=== PATIENT | female | born 1960 | race Caucasian/White ===

== ENCOUNTER → 2016-06-29 | Outpatient (CLI) | payer BC, OTHER ==
--- NOTE | 2016-06-30 09:51 | MM ---
Reason for exam: screening (asymptomatic). Last mammogram was performed 1 year and 9 months ago. History: Patient is postmenopausal and had first child at age 33. Benign right mammotome panel of the right breast, July 27, 2010. Took hormonal contraceptives for 5 years. Physical Findings: A clinical breast exam by your physician is recommended on an annual basis and results should be correlated with mammographic findings. MG Screening Mammo w CAD Bilateral CC and MLO view(s) were taken. Prior study comparison: September 30, 2014, bilateral MG screening mammo w CAD. September 19, 2013, bilateral digital screening mammo w/CAD. The breast tissue is heterogeneously dense. This may lower the sensitivity of mammography. Finding: There are typically benign calcifications in both breasts. Previous mammotome biopsy in the right breast. No significant changes in finding since September 30, 2014 and September 19, 2013. ASSESSMENT: Benign, BI-RAD 2 RECOMMENDATION: Routine screening mammogram of both breasts in 1 year.
== END | disposition home or self-care (01) ==
LOC: RADMAMWWP 07:01
PROVIDERS: ATTEND Family Medicine
DX: Z12.31 Encounter for screening mammogram for malignant neoplasm of breast (principal)

== ENCOUNTER → 2017-08-23 | Outpatient (CLI) | payer BC, OTHER ==
--- NOTE | 2017-08-24 11:31 | MM ---
Reason for exam: screening (asymptomatic). Last mammogram was performed 1 year and 2 months ago. History: Patient is postmenopausal and had first child at age 33. Benign right mammotome panel of the right breast, July 27, 2010. Took hormonal contraceptives for 5 years. Physical Findings: A clinical breast exam by your physician is recommended on an annual basis and results should be correlated with mammographic findings. MG Screening Mammo w CAD Bilateral CC and MLO view(s) were taken. Prior study comparison: June 29, 2016, bilateral MG screening mammo w CAD. September 30, 2014, bilateral MG screening mammo w CAD. The breast tissue is heterogeneously dense. This may lower the sensitivity of mammography. High density nodule lower outer left breast 6.8cm from nipple. ASSESSMENT: Incomplete: need additional imaging evaluation, BI-RAD 0 RECOMMENDATION: Special view mammogram and ultrasound of the left breast. [facility] will attempt to contact patient to return for supplemental views and ultrasound.
== END | disposition home or self-care (01) ==
LOC: RADMAMWWP 07:06
PROVIDERS: ATTEND Family Medicine
DX: Z12.31 Encounter for screening mammogram for malignant neoplasm of breast (principal); R92.2 Inconclusive mammogram
CPT/HCPCS: 77067

== ENCOUNTER → 2017-08-30 | Outpatient (CLI) | payer BC, OTHER ==
--- NOTE | 2017-08-31 07:11 | MM ---
Reason for exam: additional evaluation requested from abnormal screening. Last mammogram was performed less than 1 month ago. History: Patient is postmenopausal and had first child at age 33. Benign right mammotome panel of the right breast, July 27, 2010. Took hormonal contraceptives for 5 years. Physical Findings: Nurse Summary: 1cm nodule in the left breast at 1 o'clock (nurse tierney). MG Work Up Mamm w CAD LT Spot compression CC, spot compression MLO, and ML view(s) were taken of the left breast. Prior study comparison: August 23, 2017, bilateral MG screening mammo w CAD. June 29, 2016, bilateral MG screening mammo w CAD. No distinct lesion persists on additional views. These results were verbally communicated with the patient and result sheet given to the patient on 08/30/17. ASSESSMENT: Incomplete: need additional imaging evaluation, BI-RAD 0 RECOMMENDATION: Ultrasound of the left breast. (palpable abnormality)
--- NOTE | 2017-08-31 07:12 | USB ---
Reason for exam: additional evaluation requested from abnormal screening. History: Patient is postmenopausal and had first child at age 33. Benign right mammotome panel of the right breast, July 27, 2010. Took hormonal contraceptives for 5 years. US Breast Workup Limited LT Left breast ultrasound demonstrates no cystic or solid lesion seen, duct ectasia at the posterior nipple. These results were verbally communicated with the patient and result sheet given to the patient on 08/30/17. ASSESSMENT: Negative, BI-RAD 1 RECOMMENDATION: Return to routine screening mammogram schedule for both breasts.
== END | disposition home or self-care (01) ==
LOC: RADMAMWWP 14:45
PROVIDERS: ATTEND Family Medicine
DX: R92.8 Other abnormal and inconclusive findings on diagnostic imaging of breast (principal)
CPT/HCPCS: 77065

== ENCOUNTER → 2018-03-01 | Outpatient (CLI) | payer BC, OTHER ==
--- NOTE | 2018-03-03 12:42 | CT ---
EXAMINATION TYPE: CT elbow RT wo con DATE OF EXAM: 03/01/2018 COMPARISON: None HISTORY: rt radial head fx CT DLP: 265.4 mGycm Automated exposure control for dose reduction was used. TECHNIQUE: Axial images right elbow. Three-D reconstructed images performed separately on the [employer] computer by the technologist are reviewed. FINDINGS: Distal humerus within the [id number] is normal. There is a fracture through the radial head with the articular extension. This appears to be within t he mid radial head extending to the anterior radial neck. Radius and ulna otherwise appear intact. Mi nimal diastases is present. Some wedge deformity of the anterior portion of the radial head may be pr esent. Reconstructed images in the coronal and sagittal plane are reviewed. Three-D reconstructed images per formed separately on the [employer] computer by the technologist are reviewed. IMPRESSION: RADIAL HEAD FRACTURE WITH RADIAL HEAD DEFORMITY. VERY MINIMAL DIASTASES AT THE ARTICULAR SURFACE IS I DENTIFIED ON THE SAGITTAL PLANE IMAGES ESTIMATED AT 0.3 CM.
== END | disposition home or self-care (01) ==
LOC: RADCTMAIN 13:12
PROVIDERS: ATTEND Orthopaedic Surgery
DX: S52.121A Displaced fracture of head of right radius, initial encounter for closed fracture (principal)

== ENCOUNTER → 2018-09-05 | Outpatient (CLI) | payer BC, OTHER ==
--- NOTE | 2018-09-06 11:27 | MM ---
Reason for exam: screening (asymptomatic). Last mammogram was performed 1 year ago. History: Patient is postmenopausal and had first child at age 33. Benign right mammotome panel of the right breast, July 27, 2010. Took hormonal contraceptives for 5 years. Physical Findings: A clinical breast exam by your physician is recommended on an annual basis and results should be correlated with mammographic findings. MG 3D Screening Mammo W/Cad Bilateral CC and MLO view(s) were taken. Prior study comparison: August 30, 2017, left breast MG work up mamm w CAD LT. August 23, 2017, bilateral MG screening mammo w CAD. The breast tissue is heterogeneously dense. This may lower the sensitivity of mammography. Finding: There are indeterminate calcifications in the subareolar position of the right breast 3-4cm from the nipple. New finding since August 30, 2017 and August 23, 2017 ASSESSMENT: Incomplete: need additional imaging evaluation, BI-RAD 0 RECOMMENDATION: Special view mammogram of the right breast. [facility] will attempt to contact patient to return for supplemental views.
== END | disposition home or self-care (01) ==
LOC: RADMAMWWP 09:24
PROVIDERS: ATTEND Family Medicine
DX: Z12.31 Encounter for screening mammogram for malignant neoplasm of breast (principal)
CPT/HCPCS: 77063; 77067

== ENCOUNTER → 2018-09-12 | Outpatient (CLI) | payer BC, OTHER ==
--- NOTE | 2018-09-13 09:24 | MM ---
Reason for exam: additional evaluation requested from abnormal screening. Last mammogram was performed less than 1 month ago. History: Patient is postmenopausal and had first child at age 33. Benign right mammotome panel of the right breast, July 27, 2010. Took hormonal contraceptives for 5 years. Physical Findings: Nurse did not find any significant physical abnormalities on exam. MG 3D Work Up W/Cad RT Spot compression CC, spot compression LM, and LM view(s) were taken of the right breast. Prior study comparison: September 05, 2018, bilateral MG 3d screening mammo w/cad. August 30, 2017, left breast MG work up mamm w CAD LT. The breast tissue is heterogeneously dense. This may lower the sensitivity of mammography. Finding: There are indeterminate calcifications in the lower inner quadrant of the right breast. These results were verbally communicated with the patient and result sheet given to the patient on 09/12/18. ASSESSMENT: Suspicious, BI-RAD 4 RECOMMENDATION: Stereotactic core biopsy of the right breast. Called Dr. Mandel with mammographic findings and has scheduled an appointment for the patient for 09/13/18 at 10:[address] Kline. Biopsy scheduled for 09/24/18 at 2:20. PRELIMINARY REPORT CALLED AND FAXED TO DR. KLINE ON 09/13/18.
== END | disposition home or self-care (01) ==
LOC: RADMAMWWP 14:53
PROVIDERS: ATTEND Family Medicine
DX: R92.8 Other abnormal and inconclusive findings on diagnostic imaging of breast (principal)
CPT/HCPCS: 77061; 77065

== ENCOUNTER → 2018-09-13 | Outpatient (CLI) | payer BC, OTHER ==
[2018-09-13 10:28] VITALS: BP 142/72; PULSE 54; RESP 20; TEMP 98.2; BMI 33.6
--- NOTE | 2018-09-13 11:11 | P.GSHP ---
History of Present Illness H&P Date: 09/13/18 Chief Complaint: abnormal mammogram Sima is a 58 -year-old white female being seen in consultation for Dr. Simon who underwent a routine screening mammogram on 4419. She was noted to have some indeterminate calcifications in the right breast 3-4 cm from the nipple. The patient was recommended to undergo [place] [address]. On this mammogram there was some indeterminate calcifications in the lower inner quadrant of the right breast and stereotactic core biopsy was recommended. The patient does not feel anything of concern in her breast. The patient did have a stereo biopsy in 2010 which was benign of her right breast. She is uncertain as to which breast this was then. She has no complaints of any pain in her breast no nipple discharge or skin changes. Family history: father: throat cancer, non hodgkins lymphoma Hormonal history: Menarche: 11 : 2, children 2, breast fed: yes, first born at 33 menopause: 49 BCP: 5 years hormones: none Past surgical history: 1. Vaginal hysterectomy 2. Right knee arthroscopic surgery 3. Right fingers and elbow, trauma Past Medical History: hypothyroid Social history smoke: none alcohol: none drugs: none - Constitutional Constitutional: Denies chills, Denies fever - EENT Eyes: denies blurred vision, denies pain Ears: deny: decreased hearing, tinnitus Ears, nose, mouth and throat: Denies headache, Denies sore throat - Breasts Breasts: bilateral: as per HPI - Cardiovascular Cardiovascular: Denies chest pain, Denies shortness of breath - Respiratory Respiratory: Denies cough, Denies 7 - Gastrointestinal Comment: colonoscopies in the past [place] Gastrointestinal: Reports constipation, Denies abdominal pain, Denies diarrhea, Denies nausea, Denies vomiting - Genitourinary (Female) Genitourinary: Denies dysuria, Denies hematuria - Menstruation Menstruation: Reports postmenopausal - Musculoskeletal Comment: arthritis Musculoskeletal: Denies myalgias - Integumentary Integumentary: Denies pruritus, Denies rash - Neurological Neurological: Denies numbness, Denies weakness - Psychiatric Psychiatric: Denies anxiety, Denies depression - Endocrine Comment: hypothyroid - Hematologic/Lymphatic Comment: none - Allergic/Immunologic Comment: none Past Medical History Past Medical History: Thyroid Disorder History of Any Multi-Drug Resistant Organisms: None Reported Past Surgical History: Hysterectomy, Orthopedic Surgery Additional Past Surgical History / Comment(s): RT ELBOW AND FINGERS 03/13/2018; HYSTERECTOMY APPROX 1998; RT KNEE ARTHROSCOPY; RT BREAST BIOPSY Smoking Status: Never smoker - Past Family History Father Family Medical History: Hyperlipidemia Additional Family Medical History / Comment(s): NON-HODGKIN'S LYMPHOMA; THROAT CANCER; PACEMAKER Mother Family Medical History: Diabetes Mellitus, Hyperlipidemia, Hypertension Medications and Allergies Home Medications Medication Instructions Recorded Confirmed Type Ascorbic Acid [Vitamin C] 1,000 mg PO QAM 09/13/18 09/13/18 History Levothyroxine Sodium [Synthroid] 88 mcg PO QAM 09/13/18 09/13/18 History Multivitamins, Thera [Multivitamin 1 tab PO QAM 09/13/18 09/13/18 History (formulary)] Allergies Allergy/AdvReac Type Severity Reaction Status Date / Time amoxicillin Allergy Rash/Hives Unverified 09/13/18 10:17 Surgical - Exam Vital Signs Temp Pulse Resp BP Pulse Ox 98.2 F 54 L 20 142/72 99 09/13/18 10:19 09/13/18 10:19 09/13/18 10:19 09/13/18 10:19 09/13/18 10:19 BMI 33.6 - General well developed, well nourished, no distress - Eyes normal ocular movement - ENT no hearing loss, no congestion - Neck no masses, trachea midline - Respiratory normal respiratory effort, clear to auscultation - Cardiovascular Rhythm: regular Heart Sounds: normal: S1, S2 - Abdomen Abdomen: soft, non tender, no guarding, no rigid, no rebound - Integumentary normal turgor - Neurologic no disoriented, no combative - Musculoskeletal normal gait, normal posture - Psychiatric oriented to time, oriented to person, oriented to place, speech is normal, memory intact breast exam: right breast: Multi-positional exam no dominant masses or nodules of concern, fibrocystic changes Right axilla: No adenopathy of concern left breast: Multi-positional exam no dominant masses or nodules of concern, fibrocystic changes Left axilla: No adenopathy of concern Results Mammogram results reviewed Assessment and Plan Assessment: Impression: 1. Radiographic abnormality right breast 2. fibrocystic breast changes 3. Family history of cancer 4. hypothyroidsim Risk and benefits of stereotactic core biopsy were discussed with the patient and she wishes to proceed. Plan: 1. Stereotactic core biopsy right breast 2. Medical management of medical conditions Cc: Dr. Mandel
== END ==
LOC: WWCWWP 10:03
PROVIDERS: ATTEND Surgery
DX: Z53.9 Procedure and treatment not carried out, unspecified reason (principal)

== ENCOUNTER → 2018-09-24 | Day surgery (SDC) | payer BC, OTHER ==
[2018-09-24 13:47] VITALS: RESP 16; BMI 73.4
[2018-09-24 14:59] VITALS: BP 157/87; PULSE 44; TEMP 97.8
--- NOTE | 2018-09-24 15:14 | MM ---
Stereotactic core biopsy right breast. HISTORY: Microcalcifications. The calcifications in question within the right breast were targeted by the undersigned. The examination was performed by the surgeon. Specimen radiograph demonstrates numerous calcifications within the specimen submitted. Post procedural mammogram demonstrates appropriate deployment of radiopaque clip marker. The patient tolerated the procedure well and left the department in stable condition. Pathology results are pending. IMPRESSION: Successful stereotactic core biopsy right breast with pathology results pending. Pathology Results: Benign RIGHT BREAST, STEREOTACTIC CORE BIOPSY: Fibrocystic changes including cysts with intraluminal calcium oxalate crystals, fibrosis and apocrine metaplasia. Recommendation Follow up mammogram of the right breast in 6 months. MAGO
--- NOTE | 2018-09-24 15:37 | P.OP ---
Date of Procedure: 09/24/18 Preoperative Diagnosis: Mammographic abnormality right breast Postoperative Diagnosis: Mammographic abnormality right breast Procedure(s) Performed: Stereotactic core biopsy right breast Anesthesia: local Surgeon: Jaja Kline Estimated Blood Loss (ml): 1 Pathology: other (Breast tissue) Condition: stable Disposition: same day Indications for Procedure: Microcalcifications of concern lower inner quadrant right breast Description of Procedure: The patient is a 58-year-old white female who was noted on a recent radiographic have an area of calcification of concern in the lower quadrant of the right breast. Recommendation was for stereotactic core biopsy. This can benefits were discussed with the patient and she wished to proceed. The patient was taken to the stereotactic core biopsy room. She was positioned on the low fat stereotactic core table such that a medial to lateral approach could be utilized. A card services specialist film was obtained. The area of concern was identified. A stereo pair was then obtained. The lesion was able to be clearly targeted. The breast was prepped using Betadine. 1% lidocaine was used to anesthetize the area of concern. The needle was driven to the correct coordinates and prefire and post-fire stereo radiographs were obtained. Following this 12 core biopsies were obtained using a 9-gauge vacuum-assisted rotating core biopsy needle. The specimen revealed microcalcifications of concern had been removed. A secure marked top hat Clip was placed. Radiograph confirmed this was in the correct location. The specimen was sent for pathology. The patient will follow-up with Dr. Auguste postprocedure.
== END | disposition home or self-care (01) ==
LOC: RADMAMWWP 13:25
PROVIDERS: ATTEND Surgery
DX: N60.11 Diffuse cystic mastopathy of right breast (principal); N60.81 Other benign mammary dysplasias of right breast
CPT/HCPCS: 88305; 19081; A4648; J2001

== ENCOUNTER → 2018-10-09 | Outpatient (CLI) | payer BC, OTHER ==
[2018-10-09 12:01] VITALS: BP 130/80; PULSE 64; RESP 16; TEMP 98.1; BMI 32.9
--- NOTE | 2018-10-10 12:50 | P.PN ---
Subjective Progress Note Date: 10/09/18 Principal diagnosis: Status post stereotactic core biopsy of the right breast Juancho is a 58-year-old white female who was noted to have a radiographic abnormality on her mammogram and 4419. She had some indeterminate calcifications in the right breast. She underwent a stereotactic core biopsy on [id number]. The pathology results revealed fibrocystic changes including cyst with intraluminal calcium oxalate crystals, fibrosis, and apocrine metaplasia. The patient has no complaints postprocedure. Family history: Father: Throat cancer, non-Hodgkin's lymphoma Past surgical history: 1. Vaginal hysterectomy 2. Right knee arthroscopic surgery 3. Right finger elbows surgery Past medical history: 1. Hypothyroidism Review of systems: Constitutional: Negative HEENT: Negative Lungs: Negative Heart: Negative Breasts: As per HPI GI: Constipation : Postmenopausal Musculoskeletal: Arthritis Psychiatric: Negative Endocrine: Hypothyroid Objective - Vital Signs Vital signs: Vital Signs Temp 98.1 F 10/09/18 11:54 Pulse 64 10/09/18 11:54 Resp 16 10/09/18 11:54 BP 130/80 10/09/18 11:54 Pulse Ox 98 10/09/18 11:54 Intake & Output 10/08/18 10/09/18 10/09/18 18:59 06:59 18:59 Weight 87.09 kg - Exam BMI 33 - Constitutional General appearance: Present: obese - EENT Eyes: Present: EOMI ENT: Present: hearing grossly normal - Neck Neck: Present: normal ROM - Respiratory Respiratory: bilateral: CTA - Cardiovascular Rhythm: regular Heart sounds: normal: S1, S2 - Integumentary Integumentary Comment(s): Puncture site right breast stereotactic biopsy clean and dry with no evidence of any infection Core biopsy site is healing well No ecchymosis or hematoma noted - Musculoskeletal Musculoskeletal: Present: gait normal - Psychiatric Psychiatric: Present: A&O x's 3, appropriate affect Assessment and Plan Assessment: Impression: 1. Status post stereotactic core biopsy right breast 2. Fibrocystic breast changes 3. Family history of cancer 4. Hypothyroidism Plan: 1. Repeat right breast mammogram in 6 months with physician exam at that time 2. Continued medical management of medical conditions as per Dr. Mandel Cc: Dr. Mandel
== END ==
LOC: WWCWWP 11:50
PROVIDERS: ATTEND Surgery
DX: Z53.9 Procedure and treatment not carried out, unspecified reason (principal)

== ENCOUNTER → 2021-03-24 | Outpatient (CLI) | payer BC, OTHER ==
--- NOTE | 2021-03-25 12:33 | MM ---
Reason for exam: screening (asymptomatic). Last mammogram was performed 2 years and 6 months ago. History: Patient is postmenopausal and had first child at age 33. Benign MG stereo VAD BX RT of the right breast, September 24, 2018. Benign right mammotome panel of the right breast, July 27, 2010. Took hormonal contraceptives for 5 years. Taking estrogen beginning at age 59. Physical Findings: A clinical breast exam by your physician is recommended on an annual basis and results should be correlated with mammographic findings. MG 3D Screening Mammo W/Cad Bilateral CC and MLO view(s) were taken. Prior study comparison: September 12, 2018, right breast MG 3d work up w/cad RT. September 05, 2018, bilateral MG 3d screening mammo w/cad. The breast tissue is heterogeneously dense. This may lower the sensitivity of mammography. Stable benign calcifications. There is no discrete abnormality. No significant changes when compared with prior studies. ASSESSMENT: Benign, BI-RAD 2 RECOMMENDATION: Routine screening mammogram of both breasts in 1 year.
== END | disposition home or self-care (01) ==
LOC: RADMAMWWP 07:21
PROVIDERS: ATTEND Family Medicine
DX: Z12.31 Encounter for screening mammogram for malignant neoplasm of breast (principal); Z78.0 Asymptomatic menopausal state
CPT/HCPCS: 77063; 77067

== ENCOUNTER → 2021-04-06 | Outpatient (CLI) | payer BC, OTHER ==
[2021-04-06 08:48] LABS: Basophils % (A) 1 %; Eosinophils # (A) 0.1 k/uL (0-0.7); Eosinophils % (A) 2 %; HGB 13.5 gm/dL (11.4-16.0); Lymphocytes % (A) 21 %; MCH 30.1 pg (25.0-35.0); MCHC 32.9 g/dL (31.0-37.0); MCV 91.4 fL (80.0-100.0); Mean Platelet Volume 7.5; Monocytes # (A) 0.2 k/uL (0-1.0); Monocytes % (A) 5 %; Neutrophils # (A) 3.5 k/uL (1.3-7.7); Neutrophils % (A) 70 %; Platelet Count 267 k/uL (150-450); RBC 4.48 m/uL (3.80-5.40); WBC 4.9 k/uL (3.8-10.6)
[2021-04-06 09:06] LABS: African American GFR (CKD) >90 (>60 ml/min/1.73 sqM); Anion Gap 5 mmol/L; Blood Urea Nitrogen 15 mg/dL (7-17); Carbon Dioxide 29 mmol/L (22-30); Chloride 104 mmol/L (98-107); Glucose 89 mg/dL (74-99); Non-African American GFR(CKD) >90 (>60 ml/min/1.73 sqM); Potassium 4.7 mmol/L (3.5-5.1); Sodium 138 mmol/L (137-145)
== END | disposition home or self-care (01) ==
LOC: LABPAT 07:13
PROVIDERS: ATTEND Obstetrics & Gynecology
DX: Z01.818 Encounter for other preprocedural examination (principal); N81.4 Uterovaginal prolapse, unspecified; E03.9 Hypothyroidism, unspecified; R00.1 Bradycardia, unspecified; R94.31 Abnormal electrocardiogram [ECG] [EKG]
CPT/HCPCS: 36415; 80051; 82565; 82947; 84520; 85025; 87086; 93005

== ENCOUNTER 2021-04-11 07:21 | Day surgery (SDC) | payer BC, OTHER ==
[2021-04-06 13:25] VITALS: BMI 32.5
[~2021-04-11 07:21] MED LIST: DEXAMETHASONE SOD PHOSPHATE 4 MG/ML 1 ML VIAL IV ONE; HYDROmorphone 0.5 MG/0.5 ML SYRINGE IVP PRN; ONDANSETRON 4 MG/2 ML VIAL IVP ONE
[2021-04-11] MEDS: LACTATED RINGERS 1,000 ML IV SCH ×2 (08:01→17:52)
[2021-04-11] MEDS ORDERED: MIDAZOLAM 2 MG/2 ML VIAL IVP ONE (08:16)
[2021-04-11] MEDS ORDERED: fentaNYL (PF) 50 MCG/ML 2 ML AMP IVP ONE (08:17)
[2021-04-11] MEDS ORDERED: PROPOFOL 10 MG/ML 20 ML VIAL IV ONE (08:32)
[2021-04-11] MEDS ORDERED: SUCCINYLCHOLINE CHLORIDE 100 MG/5 ML SYR IV ONE (08:32)
[2021-04-11] MEDS ORDERED: MORPHINE SULFATE (PF) 0.3 MG/0.3 ML SYR ONE (08:32)
[2021-04-11] MEDS ORDERED: LIDOCAINE 1% INJ 10MG/ML (20 ML MDV) ONE (08:32)
[2021-04-11] MEDS ORDERED: GLYCOPYRROLATE 0.2 MG/ML 2 ML VIAL ONE (08:32)
[2021-04-11] MEDS ORDERED: fentaNYL (PF) 50 MCG/ML 2 ML AMP ONE (08:32)
--- NOTE | 2021-04-11 08:35 | P.ANPRN ---
Procedure Note - Anesthesia - Epidural/Spinal Spinal Time Out Performed: Yes Date of Procedure: 04/11/21 Procedure Start Time: Procedure Stop Time: Location of Patient: PreOp Indication: Acute Post-Operative Pain, Requested by Surgeon Sedation Type: Sedate with meaningful contact maintained Preparation: Sterile Prep Position: Sitting Needle Guage: 25 Blood Aspirated: No Pain Paresthesia on Injection Noted: No Events: Uneventful and Well Tolerated (Fentanyle 25 mcg + Duramorph 300 mcg injected intrathecally)
[2021-04-11] MEDS ORDERED: VASOPRESSIN 20 UNIT/ML 1 ML VIAL SQ ONE (08:54)
[2021-04-11] MEDS ORDERED: BACITRACIN ZINC 500 UNIT/GM OINT 28.4 GM TUBE TOPICAL ONE ×2 (08:59→09:16)
[2021-04-11] MEDS ORDERED: LACTATED RINGERS 1,000 ML IV ONE (09:18)
[2021-04-11] MEDS ORDERED: NALOXONE 0.4 MG/ML 1 ML VIAL IV PRN (09:31)
[2021-04-11] MEDS ORDERED: diphenhydrAMINE 50 MG/ML 1 ML VIAL IVP PRN ×2 (09:31→09:35)
[2021-04-11] MEDS ORDERED: HYDROmorphone 0.5 MG/0.5 ML SYRINGE IVP PRN (09:31)
[2021-04-11] MEDS ORDERED: KETOROLAC 15 MG/ML 1 ML VIAL IVP PRN ×2 (09:31→09:35)
[2021-04-11] MEDS ORDERED: NALBUPHINE 10 MG/ML (1 ML AMP) IV PRN (09:31)
[2021-04-11] MEDS ORDERED: METOCLOPRAMIDE 5 MG/ML 2 ML VIAL IVP PRN (09:35)
[2021-04-11] MEDS ORDERED: IBUPROFEN 600 MG TAB PO PRN (09:35)
[2021-04-11] MEDS ORDERED: ONDANSETRON 4 MG/2 ML VIAL IVP PRN (09:35)
[2021-04-11] MEDS ORDERED: SIMETHICONE 80 MG CHEWABLE PO PRN (09:35)
[2021-04-11] MEDS ORDERED: ZOLPIDEM 5 MG TAB PO PRN (09:35)
--- NOTE | 2021-04-11 09:35 | P.OP ---
Date of Procedure: 04/11/21 Preoperative Diagnosis: Symptomatic grade 3-4 cystocele Postoperative Diagnosis: Same Procedure(s) Performed: Anterior colporrhaphy Anesthesia: FORTINOA Surgeon: Laila Patterson Customer Loyalty Representative #1: Jason Kwan Estimated Blood Loss (ml): 20 IV fluids (ml): 800 Urine output (ml): 50 Pathology: none sent Condition: stable Disposition: PACU Description of Procedure: Patient is brought to the operating suite where a general anesthetic is administered without difficulty. Spinal with Duramorph was given in the preoperative area. Patient is placed in the dorsal lithotomy position. The perineal body, an entire vaginal vault are prepped and draped in the usual sterile fashion. Antibiotics are given. The appropriate timeout is performed to assure proper patient and procedural identification. Weighted speculum was placed into the vagina. Bladder is drained for approximate 50 mL of clear yellow urine. The uterosacral cardinal ligament dimples are identified and grasped with Allis clamps. A scalpel is used to incise between the 2 dimples. The anterior vaginal mucosa is injected with a dilute Pitressin solution and a Metzenbaum scissor is used in the midline to open the vaginal mucosa to approximate 1.5 cm inferior to the urethra. The vaginal mucosa is held in a fanlike fashion bilaterally with Allis clamps. A sponge rolled finger is used to separate the overlying vaginal mucosa from the underlying fascial plane. Lerma catheter is placed for urethral identification. 2-0 Vicryl sutures used in an interrupted fashion to bring the fascial edges together in the midline, thereby completely reducing the cystocele. Metzenbaum scissors are used to trim the redundant mucosa. 2-0 Vicryl suture now is used in a running fashion to bring the mucosal edges together thereby completely eliminating the cystocele. Lerma is noted to be draining clear urine. Vagina is packed with a 1 inch iodophor gauze with basic tracing. All sponge needle and enhancement counts are correct. Patient is brought back to the recovery room in very good condition with stable vital signs including blood pressure 94/55, pulse 44, 97% O2 saturation. Postoperative orders are placed. Complications none. Total EBL 20cc.
[2021-04-11] MEDS ORDERED: KETOROLAC 15 MG/ML 1 ML VIAL IVP ONE (10:05)
[2021-04-11] MEDS ORDERED: diphenhydrAMINE 50 MG/ML 1 ML VIAL IVP ONE (10:58)
--- NOTE | 2021-04-12 06:48 | P.DS ---
Providers Date of admission: 04/11/21 Expected date of discharge: 04/12/21 Attending physician: Laila Patterson Primary care physician: [facility] Course: This is a 61-year-old female who presented with increasingly symptomatic grade 4 cystocele for surgical para. The option of pessary was discussed and declined. Second opinion and declined. Please see dictated history and physical for details. Yesterday under my care she underwent a cystocele repair which went remarkably well. Lerma catheter and vaginal packing were placed. Estimated blood loss 20 mL's. Good support was noted of the vaginal vault. Please see dictated operative note for details. This morning the patient is doing well. Lerma catheter and vaginal packing had been removed. IV is removed. She is passing flatus. There is only scant vaginal drainage. She complains of no pain. Diet and activity has been advanced. Bladder training has been ordered. Pending successful bladder training patient is to be discharged home later today. She is in very good condition for discharge home. I have reminded her no intercourse, tampons or douching. No heavy lifting. No driving for 2 weeks. She will call me with any fevers shakes or chills, foul smelling or bloody vaginal drainage, with any pain not alleviated by [id number] products, or indeed with any concerns. Follow-up in the office with me in 2 weeks or as needed. Patient Condition at Discharge: Good Plan - Discharge Summary New Discharge Prescriptions: No Action Multivitamins, Thera [Multivitamin (formulary)] 1 tab PO QAM Levothyroxine Sodium [Synthroid] 88 mcg PO QAM Ascorbic Acid [Vitamin C] 1,000 mg PO QAM Selenium 50 mcg PO DAILY Magnesium Unk Dose 1 tab PO DAILY Cholecalciferol [Vitamin D3 (25 Mcg = 1000 Iu)] 50 mcg PO DAILY Zinc 50 mg PO DAILY Discharge Medication List Ascorbic Acid [Vitamin C] 1,000 mg PO QAM 09/13/18 [History] Levothyroxine Sodium [Synthroid] 88 mcg PO QAM 09/13/18 [History] Multivitamins, Thera [Multivitamin (formulary)] 1 tab PO QAM 09/13/18 [History] Cholecalciferol [Vitamin D3 (25 Mcg = 1000 Iu)] 50 mcg PO DAILY 04/06/21 [His tory] Magnesium Unk Dose 1 tab PO DAILY 04/06/21 [History] Selenium 50 mcg PO DAILY 04/06/21 [History] Zinc 50 mg PO DAILY 04/06/21 [History] Follow up Appointment(s)/Referral(s): Laila Patterson MD [STAFF PHYSICIAN] - 2 Weeks Discharge Disposition: HOME SELF-CARE
--- NOTE | 2021-04-12 07:52 | P.PN ---
Progress Note - Text 04/12/21 704am 61-year-old female status post rectocele repair by Dr. Elza rodrigez. Patient received a spinal Duramorph for postop pain control, patient seen and evaluated this morning, patient has a VAS of 1. Patient did have nausea vomiting and pruritus yesterday afternoon , doing well this morning with no issues.
[2021-04-12 09:09] VITALS: RESP 18
[2021-04-12 09:17] VITALS: BP 103/59; PULSE 56; TEMP 98.1
== END 2021-04-12 11:07 | disposition home or self-care (01) ==
LOC: OR 07:21 → 6PED 10:43 → OR 04-12 11:07
PROVIDERS: ATTEND Obstetrics & Gynecology
DX: N81.10 Cystocele, unspecified (principal); K57.90 Diverticulosis of intestine, part unspecified, without perforation or abscess without bleeding; E03.9 Hypothyroidism, unspecified; K64.9 Unspecified hemorrhoids; J32.9 Chronic sinusitis, unspecified; L90.0 Lichen sclerosus et atrophicus; Z79.899 Other long term (current) drug therapy
CPT/HCPCS: 86900; 86901; 86850; 87635; 57240; J2250; J1200; J1100; J0690; J2405; J3010; J1885; J1170